=== PATIENT | male | born 1985 | race Caucasian/White ===

== ENCOUNTER 2024-07-27 22:27 | Inpatient (IN) | payer BC, SELFPAY ==
[2024-07-27 20:00] VITALS: BP 126/83; PULSE 70; RESP 20; TEMP 36.4; O2SAT 94
[2024-07-27 23:38] VITALS: BMI 22.3
--- NOTE | 2024-07-28 03:15 | PC.ADMIT ---
38yo M who arrived from [facility] at 2244 PM on 07/27/24. Pt is on 12b, arrives after failed suicide attempt by hanging. Per crisis report, pt attempted to hang himself with a chain from a tree branch but the branch broke. Pt requested separation from pt last week and pt has been residing at his mother's house since, which is where event occurred. Pt first statement to nursing staff is I don't give a shit what you say I am leaving here tomorrow at 3 PM. Pt provided information regarding 12b, pt aware of 72 hour hold, indicates this is work related. Pt says he recently relapsed on alcohol after 10 months of sobriety, states that relapse and last drink was just prior to suicide attempt and that I drank a shit ton. Per crisis report pt said that the suicide was planned but that he couldn't do it sober. Pt is not fully cooperative with admission, refusing to sign any documents. Pt does not want anyone to know he is here. Pt states I should be allowed to decide how I live or . Continues to be fixated on returning to work on Sunday morning. Pt appears anxious, making poor eye contact, shares some details but refuses to answer many questions. When asked about what led to this admission pt states, This is how men are, they don't want to talk about things, they just bottle it up until they explode. Pt has a plethora of upper body tattoos, 2 facial piercings and one ear piercing in place on arrival, bilateral nipple piercings and additional ear loop removed while in ED are currently in belongings. Pt is daily smoker/vaper, denies other substance use.
[2024-07-28 07:55] VITALS: BP 139/80; PULSE 70; RESP 16; TEMP 36.4; O2SAT 97
--- NOTE | 2024-07-28 08:36 | P.HPPS_ITS ---
HPI Date of Service: 07/28/24 Chief Complaint: Recurrent major depression, alcohol use disorder Sources of Information: patient interviewed, chart reviewed and crisis/core team assessment reviewed Additional Sources of Information: Mother, Eric. [phone]. Agrees pt should remain in hospital. Believes pt needs addiction rehab and that the couple need to divorce. Pt has a significant amount of debt and is worried about this. Family has not told pt's father of attempt as he is opinionated and can be difficult with pt. Pt often hides his emotions, has very low self esteem and will not be truthful about how he is feeling. Pt left rehab in [place] at the end of 2022 after only 2 weeks ([facility]). Eric believes he needs to return and return to . Eric's parents of alcohol related illnesses and both of her sisters are sober, so she is very concerned that pt is on a difficult path if he does not take this seriously. , Josette [phone]. 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 Connor and Josette recently separat ed after an attempted reconcilliation. Pt is angry and tells Josette he is going to get himself out of [facility] and do it right this time . Josette reports pt is highly manipulative and does not know how to accept when something has gone wrong and needs to be worked on. HPI Subjective Notes: [place] Warning and Section 12B Healthcare Proxy: No Guardianship: No Medical Problems Affecting Mental Status: No Narrative: 38 yo male, transferred from [facility] s/p 20 hour admit, medical clearance s/p attempting to hang himself with a chain from a tree at mother's home. The branch of the tree broke and pt fell. Pt reports 10 months of sobriety with 2 weeks of relapse of alcohol. Precipitants include asking for a divorce, pt moving from the family home to his mothers last week. Pt called to inform her he was going to suicide. Pt is very upset, apprehensive, angry, lookit, I need to be out of here by 3pm today. I don't want or need meds/treatment and I need to work at 430am tomorrow. [facility] assessed me when I was drunk. The ER MD told me you would just sign me out, so get to it Education provided on decision to keep pt due to attempt. Pt not accepting of this-states there is no way to call work to tell them ( will notify pt's division road supervisor). States he works with [employer] which is a classified program with the [employer] and [employer], has been there for eleven years and I cannot be excused . 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 Pt cooperative with history, declines all treatment, not needed . I was sober 10 months and broke for a few days(2 weeks), I just need to go back to work . States stress has been building due to wifes decision to divorce. Past Psychiatric History: IP: Denies OP: Had couples therapy, no current alliances IOP: 12 weeks/ 8 weeks Hx of attending [facility] suicidal gesture 08/2023-put a knife to his neck suicide attempt 06/2024-attempted hanging Medical Evaluation Reviewed: Yes [facility] Medical History (Updated 07/28/24 @ 14:19 by Hellen Cortes, BUILDING ENERGY RETROFIT TECHNICIAN) Mood disorder Alcohol use disorder Hypogonadism in male Narrative: CT negative, CTA negative, no stenosis, no LVO, chronic compression fx C6-7 Family History: Pt believes so Mother reports strong hx alcoholism Social History: Born and raised in [place] by both parents, 2 older brothers. Completed high school, parents father remarried. Felony property destruction [phone] x 2, current marriage in trouble since Aug 2023-pt was not honest and was involved in infidelity. Moved to moms house last week 4 children- estranged from 2 oldest middle child in college youngest child I am trying to mend our relationship Substance History: Relapse on alcohol ~ 2weeks ago Diagnostics Vital Signs (24Hr): Vital Signs - 24 hr 07/27/24 20:00 07/28/24 07:55 Temperature 97.6 F 97.5 F Pulse Rate 70 70 Respiratory Rate 20 16 Blood Pressure 126/83 139/80 Pulse Oximetry 94 97 Oxygen Delivery Method Room Air Room Air BMI result Body Mass Index 22.3 Meds/Allergies Meds Home Medications ?Medication ?Instructions ?Recorded ?Confirmed ?Type testosterone cypionate 2XW 07/28/24 History Allergies Allergies Allergy/AdvReac Type Severity Reaction Status Date / Time succinylcholine Allergy Severe pseudocholinesterase Verified 07/27/24 16:06 deficient Mental Status Exam Mental Status Exam Patient Appearance: Fatigued Patient Orientation: Person, Place, Time and Situation Level of Consciousness: Alert Patient Behavior: Restless, Resistive to Care, Distractible and Poor Eye Contact Mood Description: Depressed and Angry Affect Description: Flat Patient Cognition Impaired: No Ability to Follow Directions: Good Speech Pattern: Spontaneous Speech Memory Description: Episodic Impaired Hallucinations: None Delusions: Not Present Perceptual Disturbances: Depersonalization and Derealization Thought Process: Illogical, Rumination and Goal Oriented Thought Content: positive for Goal Oriented, positive for Perseveration and positive for Suicidal Ideation Depressive Symptoms: Increased Irritability, Thoughts of /Suicide and Low Self Esteem Abnormal Motor Activity Signs and Symptoms: Restlessness Judgement: Poor Assessment & Plan Assessment & Plan (1) Alcohol use disorder: Status: Acute Code(s): F10.90 - Alcohol use, unspecified, uncomplicated (2) Mood disorder: Status: Acute Code(s): F39 - Unspecified mood [affective] disorder Plan Mood Disorder, Alcohol Use Disorder. Plan: Admit, Section XII B, 15 minute checks Collateral contacts Lorazepam detox protocol, MVI, Folic Acid, Thiamine Olanzapine prn Encourage milieu Addiction consult Aftercare planning. Family encourages pt to return to longer term rehab. Patient educated on: therapeutic strategies Reason for continued inpatient stay Substantial Risk for: rapid decompensation Statement Statement: I have reviewed the history and physical and performed a pertinent examination on my patient. No changes have occurred unless specified. If the History and Physical was not performed prior to admission, the Hospitalist's service will be consulted for completing the admission physical. Time Spent With Patient Time: Total time managing care of this patient today ____ minutes.
[2024-07-28 08:41] LABS: Estimated Average Glucose 91 mg/dL; Hemoglobin A1c % 4.8 % (<6.0)
[2024-07-28 08:55] LABS: Cholesterol 170 mg/dL (<200); HDL Cholesterol 40 mg/dL (>40); LDL Cholesterol Calculated 101 mg/dL (<100); Magnesium 2.3 mg/dL (1.6-2.6); Triglycerides 145 mg/dL (<150)
[2024-07-28 09:09] LABS: Thyroid Stimulating Hormone 1.27 uIU/mL (0.32-4.0)
[2024-07-28 09:23] LABS: Folate 12.2 ng/mL (> or = 4.0); Vitamin B12 590 pg/mL (200-900)
--- NOTE | 2024-07-28 10:52 | HO.PM.IMCN ---
History of Present Illness Data of Consult Service Date: 07/28/24 Requesting physician: Hellen Cortes Primary Care Provider: Flavia Perez MD [facility] Reason for consult: medical h&p 38 year old male with history of hypogonadism on testosterone therapy admitted to adult psychiatry from [facility] ED with consult placed to hospitalist service for medical H&P. The patient apparently had relapsed on alcohol and had suicide attempt. He reportedly had a chain around his neck attached to a tree branch which broke likely secondary to weight and EMS was called. In the ED, head CT negative for acute abnormality. CTA negative for stenosis or LVO. There were chronic compression fracutres at C6-C7 but no acute osseous abnormality. Incidental finding of large lucency around the anterior para midlione maxilla surrounding roots of central and lateral incisors, question of radicular cyst or periapical abscess. Vitals stable, no fevers. Denies any physical complaints. No dental pain, no neck pain, dizziness, or headaches. While in the ED, hematology studies unremarkable. Renal function and lytes wnl. hepatic fx wnl. Ethyl alcohol level 176. EKG report reads st elevations in anterior leads on initial and repeat EKG. No trop taken. No chest pain, sob, nausea/vomiting, dizziness, syncope. Review of Systems Review of Systems: General: No fevers, malaise, unintentional weight loss HEENT: No blurred vision, diplopia. No sore throat, nasal congestion, rhinorrhea, sinus pain, ear pain, dental pain Cardiovascular: No chest pain, palpitations, or leg edema Respiratory: No shortness of breath, wheezing, cough GI: No abdominal pain, nausea, vomiting, diarrhea, constipation, melena, hematochezia : No dysuria, hematuria, increased urinary frequency, decreased urinary output MSK: No myalgia, back pain Neuro: No headaches, weakness, paresthesias Skin: No rashes or lesions PMFSH Medical History Hypogonadism in male Social History Household Members: Other Household Members Other:: pt refusing to answer states lives at home Patient Tobacco Use Status: Current everyday Tobacco user Tobacco use type: Cigarette and Smokeless Tobacco Smoked in Last 30 Days: Yes e-Cigarette/Vaping Use: Currently Using Frequency of e-Cigarette/Vaping Use: daily Patient Interested in Nicotine Replacement: Yes Use of substances other than those prescribed or required for medical reasons: Yes Substance Use Type: Marijuana Substance Use Frequency: Occasionally Currently Displaying Signs/Symptoms of Drug Intoxication Withdrawal: No Other Past Substance Use Problem:: hx alcohol detox program Any prior treatment program specific to substance use: No Advance Directives: No Advance Directives Information Provided: No Do you have thoughts of harming others: None Do you have a plan to hurt others: No Plan Recently lost weight without trying: Unsure Meds Allergies Allergy/AdvReac Type Severity Reaction Status Date / Time succinylcholine Allergy Severe pseudocholinesterase Verified 07/27/24 16:06 deficient Active Medications: Current Medications Acetaminophen (Acetaminophen 325 Mg Tablet) 650 mg PO Q6H PRN PRN Reason: Headache/Pain Mild Scale (1-3) Al Hydroxide/Mg Hydroxide (Magnesium Hydrox/Alum Hydrox 30 Ml Oral.Susp) 30 ml PO Q6H PRN PRN Reason: Heartburn/Nausea Folic Acid (Folic Acid 1 Mg Tablet) 1 mg PO DAILY [facility] Hydroxyzine HCl (Hydroxyzine Hcl 25 Mg Tablet) 25 mg PO Q6H PRN PRN Reason: Anxiety Lorazepam (Lorazepam 1 Mg Tablet) 1 mg PO Q2H PRN PRN Reason: CIWA 6-10 Lorazepam (Lorazepam 1 Mg Tablet) 2 mg PO Q2H PRN PRN Reason: CIWA 11+ Magnesium Hydroxide (Milk Of Magnesia 30 Ml Oral.Susp) 30 ml PO DAILY PRN PRN Reason: Constipation Multivitamins/Vitamin C (Multivitamin Tablet) 1 tab PO DAILY [facility] Nicotine (Nicotine 21 Mg Patch.Td24) 21 mg TRANSDERMA DAILY PRN PRN Reason: nicotine cravings Nicotine Polacrilex (Nicotine Polacrilex 2 Mg Gum) 4 mg BUCCAL Q2H PRN PRN Reason: Nicotine Cravings Olanzapine (Olanzapine 5 Mg Tablet) 5 mg PO Q4H PRN PRN Reason: agitation Thiamine HCl (Thiamine Hcl 100 Mg Tablet) 100 mg PO DAILY [facility] Trazodone HCl (Trazodone Hcl 50 Mg Tablet) 50 mg PO BEDTIME MRX1 PRN PRN Reason: Insomnia Home Medications ?Medication ?Instructions ?Recorded ?Confirmed ?Last Taken ?Type testosterone cypionate 2XW 07/28/24 07/25/24 History Physical Exam Vital Signs and Narrative: Vital Signs: Last Vital Signs Temp 97.5 F 07/28/24 07:55 Pulse 70 07/28/24 07:55 Resp 16 07/28/24 07:55 BP 139/80 07/28/24 07:55 Pulse Ox 97 07/28/24 07:55 O2 Del Method Room Air 07/28/24 07:55 BMI result Body Mass Index 22.3 Constitutional - Awake and Alert, No apparent distress Eyes - PERRLA, EOMI Cardiovascular - S1S2, RRR, No edema Respiratory - Normal lung expansion, Normal respiratory effort, No respiratory distress, CTA bilaterally Gastrointestinal - NT / ND; +BS; No rebound or guarding Extremities - no calf tenderness bilaterally, no swelling Musculoskeletal - Normal inspection, normal ROM Skin - Warm/Dry Neurological - Alert & oriented x3, CN II-XII in tact, 5/5 strength BUE and BLE Psychological - Appropriate affect Results Labs Labs: Laboratory Results - last 24 hr 07/28/24 07:50 Estimat Average Glucose 91 Hemoglobin A1c % 4.8 Magnesium 2.3 Triglycerides 145 Cholesterol 170 LDL Cholesterol, Calc 101 H HDL Cholesterol 40 L Vitamin B12 590 Folate 12.2 TSH 1.27 Free T4 0.90 Assessment and Plan (1) Routine medical exam: Status: Acute Plan 38 year old male with history of hypogonadism on testosterone therapy admitted to adult psychiatry from [facility] ED with consult placed to hospitalist service for medical H&P. #Mood disorder/suicide attempt by hanging -CT head negative for acute abnormality, CTA head/neck shows chronic compression fx C6-C7 but no acute osseous abn -Plan per psychiatry #Abnormal EKG -report reads ST elevations in anterior leads. No CP -Repeat EKG now. #Maxillary lucency on CTA -doubt periapical abscess in absence of fevers, leukocytosis, or pain -likely cystic. Outpt follow up with dental/oral surgeon #Hypogonadism -family can bring in testosterone from home or can resume on discharge Thank you for allowing me to participate in this consult. Signing off at this time. Please do not hesitate to call for further questions or for any acute medical issues
[2024-07-28 19:47] VITALS: BP 131/75; PULSE 71; RESP 14; TEMP 36.3; O2SAT 96
[2024-07-29 08:00] VITALS: BP 118/79; PULSE 69; RESP 18; TEMP 37.1; O2SAT 95
[2024-07-29] MEDS: Thiamine HCL 100 MG TABLET PO (08:55)
[2024-07-29] MEDS: Folic Acid 1 MG TABLET PO (08:55)
[2024-07-29] MEDS: Multivitamin TABLET 1 TAB PO (08:55)
--- NOTE | 2024-07-29 10:15 | HO.PSYCHPN ---
Subjective Subjective Date of Service: 07/29/24 Reason For Visit: Recurrent major depression, alcohol use disorder Interim History: Met with patient; discussed with team; reviewed chart Patient explained discrepancies between thinks he said an emergency room with what he is thinking and feeling now. He says that he did say several things he did not mean when in the ED because he was still intoxicated. Patient says he did not really have a plan to end his life but that suicidal thoughts would come and go in and out of his mind at times given relational strife; he says that once intoxicated however those thoughts lingered instead of resolved; he agrees that perhaps he said he was planning it but unable to do it while was sober but explains now that he has 4 kids from a previous marriage, referencing his daughter whom he recently dropped off to college and 1 of his sons is starting [employer]o high school, all who lost their mother to a drug overdose; he says that even though he may have said such things while intoxicated, he did not really mean them and would not want to put his children through anything like that again. He says otherwise he has never been suicidal in his life He does not remember telling his that once he gets out of the hospital he will do it right... But Again saying this was due to being intoxicated at the time and does not think that way now. He denies any SI at all and wants to discharge so he can get back to work saying the bills will not pay for themselves. He says this experience once again prove to himself that he can not handle drinking at all. Patient reported that he was sober for 10 months and relapsed just that day; in the ED he did report he had been drinking for about 2 weeks prior Patient said that situationally he has been depressed this past month but overall not that much denies any significant depressive episodes throughout his lifetime. He says he will feel depressed about his life situation, that he works 2 jobs, the way things have worked out for him but denies that this is significant. Denies trauma history. Patient says he has never been on medication but is willing to try it and after hearing risks/side effects agreed to start Lexapro. He also agrees that he would probably benefit from therapy which he says will have more time to do now that he is going to be able to quit 1 of his jobs. Mental Status Exam Mental Status Exam Narrative: Pt is alert and oriented; behavior is cooperative, friendly and calm; patient is not in distress; dressed in casual attire with unkempt hair but adequate hygiene; mood is described as good and affect congruent; eye contact appropriate; Speech is normal rate, volume and prosody and not pressured; no psychomotor agitation/retardation present; thought process is organized and goal directed; Thought content is on tx; otherwise pertinent to relevant topics and without any delusional content, paranoid ideations or grandiosity; denies any SI/HI. There is no evidence of perceptual disturbance. Patients insight and judgment appear intact. Diagnostics Vital Signs (24Hr): Vital Signs - 24 hr 07/28/24 19:47 Temperature 97.3 F Pulse Rate 71 Respiratory Rate 14 Blood Pressure 131/75 Pulse Oximetry 96 Oxygen Delivery Method Room Air BMI result Body Mass Index 22.3 Labs Labs: Laboratory Results - last 48 hr 07/28/24 07:50 Estimat Average Glucose 91 Hemoglobin A1c % 4.8 Magnesium 2.3 Triglycerides 145 Cholesterol 170 LDL Cholesterol, Calc 101 H HDL Cholesterol 40 L Vitamin B12 590 Folate 12.2 TSH 1.27 Free T4 0.90 Medications Medications Current Medications Acetaminophen (Acetaminophen 325 Mg Tablet) 650 mg PO Q6H PRN PRN Reason: Headache/Pain Mild Scale (1-3) Al Hydroxide/Mg Hydroxide (Magnesium Hydrox/Alum Hydrox 30 Ml Oral.Susp) 30 ml PO Q6H PRN PRN Reason: Heartburn/Nausea Folic Acid (Folic Acid 1 Mg Tablet) 1 mg PO DAILY [facility] Last Admin: 07/29/24 08:55 Dose: 1 mg Hydroxyzine HCl (Hydroxyzine Hcl 25 Mg Tablet) 25 mg PO Q6H PRN PRN Reason: Anxiety Lorazepam (Lorazepam 1 Mg Tablet) 1 mg PO Q2H PRN PRN Reason: CIWA 6-10 Lorazepam (Lorazepam 1 Mg Tablet) 2 mg PO Q2H PRN PRN Reason: CIWA 11+ Magnesium Hydroxide (Milk Of Magnesia 30 Ml Oral.Susp) 30 ml PO DAILY PRN PRN Reason: Constipation Multivitamins/Vitamin C (Multivitamin Tablet) 1 tab PO DAILY [facility] Last Admin: 07/29/24 08:55 Dose: 1 tab Nicotine (Nicotine 21 Mg Patch.Td24) 21 mg TRANSDERMA DAILY PRN PRN Reason: nicotine cravings Nicotine Polacrilex (Nicotine Polacrilex 2 Mg Gum) 4 mg BUCCAL Q2H PRN PRN Reason: Nicotine Cravings Olanzapine (Olanzapine 5 Mg Tablet) 5 mg PO Q4H PRN PRN Reason: agitation Thiamine HCl (Thiamine Hcl 100 Mg Tablet) 100 mg PO DAILY [facility] Last Admin: 07/29/24 08:55 Dose: 100 mg Trazodone HCl (Trazodone Hcl 50 Mg Tablet) 50 mg PO BEDTIME MRX1 PRN PRN Reason: Insomnia Allergies Allergies Allergy/AdvReac Type Severity Reaction Status Date / Time succinylcholine Allergy Severe pseudocholinesterase Verified 07/27/24 16:06 deficient Assessment & Plan Assessment & Plan (1) Alcohol use disorder: Status: Acute Code(s): F10.90 - Alcohol use, unspecified, uncomplicated (2) Mood disorder: Status: Acute Code(s): F39 - Unspecified mood [affective] disorder Plan Mood Disorder, Alcohol Use Disorder. Hospital course: 07/29 Patient explained discrepancies between thinks he said an emergency room with what he is thinking and feeling now. He says that he did say several things he did not mean when in the ED because he was still intoxicated. Patient says he did not really have a plan to end his life but that suicidal thoughts would come and go in and out of his mind at times given relational strife; he says that once intoxicated however those thoughts lingered instead of resolved; he agrees that perhaps he said he was planning it but unable to do it while was sober but explains now that he has 4 kids from a previous marriage, referencing his daughter whom he recently dropped off to college and 1 of his sons is starting nilo high school, all who lost their mother to a drug overdose; he says that even though he may have said such things while intoxicated, he did not really mean them and would not want to put his children through anything like that again. He says otherwise he has never been suicidal in his life He does not remember telling his that once he gets out of the hospital he will do it right... But Again saying this was due to being intoxicated at the time and does not think that way now. He denies any SI at all and wants to discharge so he can get back to work saying the bills will not pay for themselves. He says this experience once again prove to himself that he can not handle drinking at all. Patient reported that he was sober for 10 months and relapsed just that day; in the ED he did report he had been drinking for about 2 weeks prior; denies any withdrawal symptoms Patient said that situationally he has been depressed this past month but overall not that much denies any significant depressive episodes throughout his lifetime. He says he will feel depressed about his life situation, that he works 2 jobs, the way things have worked out for him but denies that this is significant. Denies trauma history. Patient says he has never been on medication but is willing to try it and after hearing risks/side effects agreed to start Lexapro. Discussed the need to better figure out why he became suicidal, why all sudden became so hopeless; patient agrees and says he would benefit from therapy which he says will have more time to do now that he is going to be able to quit 1 of his jobs. Plan: Section XII B, Q 15 minute checks Start Lexapro 10 mg Collateral contacts Lorazepam detox protocol, MVI, Folic Acid, Thiamine Olanzapine prn Encourage milieu Addiction consult Aftercare planning. Family encourages pt to return to longer term rehab. Patient educated on: diagnosis, medication risk/benefits, substance abuse and therapeutic strategies Informed Consent: understands Reason for continued inpatient stay Substantial Risk for: rapid decompensation Time Spent With Patient Time: Total time managing care of this patient today ____ minutes.
--- NOTE | 2024-07-29 13:38 | MHC.RECOVRN ---
AUDIT-C Brief Intervention Pt had positive screen for unhealthy alcohol use on admission. Attempted to meet with pt to discuss alcohol use and offer resources, pt declined.
[2024-07-29] MEDS: Escitalopram Oxalate 5 MG TABLET PO (13:55)
[2024-07-29] MEDS: Nicotine Polacrilex Lozenge 4 MG LOZENGE BUCCAL ×2 (14:12→21:08)
[2024-07-29 20:00] VITALS: BP 133/78; PULSE 67; RESP 18; TEMP 36.4; O2SAT 93
[2024-07-29] MEDS: traZODone HCL 50 MG TABLET PO (21:08)
[2024-07-30 08:00] VITALS: BP 118/75; PULSE 66; RESP 18; TEMP 36.7; O2SAT 95
[2024-07-30] MEDS: Multivitamin TABLET 1 TAB PO (09:09)
[2024-07-30] MEDS: Thiamine HCL 100 MG TABLET PO (09:09)
[2024-07-30] MEDS: Folic Acid 1 MG TABLET PO (09:09)
[2024-07-30] MEDS: Escitalopram Oxalate 10 MG TABLET PO (09:09)
[2024-07-30] MEDS: Nicotine Polacrilex Lozenge 4 MG LOZENGE BUCCAL ×3 (11:27→21:06)
--- NOTE | 2024-07-30 17:39 | P.PNPSI_ITS ---
Subjective Subjective Date of Service: 07/30/24 Reason For Visit: Recurrent major depression, alcohol use disorder Interim History: Met with patient; discussed with team Patient reports that he is feeling better. No problems with Lexapro and agrees to continue. Also reports trazodone has been helpful at wants to continue with that as well. Patient plans to stay at his mother's who visited on the unit. Patient said it was fine to talk with his mother Patient's mother does not think he is in imminent risk for harm to self and denies any other history of SI other than many years ago; says he called his to tell her he was planning to hang himself which she thinks was done in part to solicit a response from her, perhaps to get her to reconcile further. She corroborates that he has been sober for the past 10 months; she agrees however that it is possible he has been drinking more the past week than he initially said. She said he is welcome to come back and stay at her house. Mental Status Exam Mental Status Exam Narrative: Pt is alert and oriented; behavior is cooperative, friendly and calm; patient is not in distress; dressed in casual attire and adequately groomed; tattoos legs arms neck; mood is described as good and affect congruent; eye contact appropriate; Speech is normal rate, volume and prosody and not pressured; no psychomotor agitation/retardation present; thought process is organized and goal directed; Thought content is on tx and discharge; otherwise pertinent to relevant topics and without any delusional content, paranoid ideations or grandiosity; denies any SI/HI. There is no evidence of perceptual disturbance. Patients insight and judgment somewhat impaired but at baseline and adequate Diagnostics Vital Signs (24Hr): Vital Signs - 24 hr 07/29/24 20:00 07/30/24 08:00 Temperature 97.5 F 98.1 F Pulse Rate 67 66 Respiratory Rate 18 18 Blood Pressure 133/78 118/75 Pulse Oximetry 93 95 Oxygen Delivery Method Room Air Room Air BMI result Body Mass Index 22.3 Medications Medications Current Medications Acetaminophen (Acetaminophen 325 Mg Tablet) 650 mg PO Q6H PRN PRN Reason: Headache/Pain Mild Scale (1-3) Al Hydroxide/Mg Hydroxide (Magnesium Hydrox/Alum Hydrox 30 Ml Oral.Susp) 30 ml PO Q6H PRN PRN Reason: Heartburn/Nausea Escitalopram Oxalate (Escitalopram Oxalate 10 Mg Tablet) 10 mg PO DAILY [facility] Last Admin: 07/30/24 09:09 Dose: 10 mg Folic Acid (Folic Acid 1 Mg Tablet) 1 mg PO DAILY [facility] Last Admin: 07/30/24 09:09 Dose: 1 mg Hydroxyzine HCl (Hydroxyzine Hcl 25 Mg Tablet) 25 mg PO Q6H PRN PRN Reason: Anxiety Magnesium Hydroxide (Milk Of Magnesia 30 Ml Oral.Susp) 30 ml PO DAILY PRN PRN Reason: Constipation Multivitamins/Vitamin C (Multivitamin Tablet) 1 tab PO DAILY [facility] Last Admin: 07/30/24 09:09 Dose: 1 tab Nicotine (Nicotine 21 Mg Patch.Td24) 21 mg TRANSDERMA DAILY PRN PRN Reason: nicotine cravings Nicotine Polacrilex (Nicotine Polacrilex Lozenge 4 Mg Lozenge) 4 mg BUCCAL Q2H PRN PRN Reason: Nicotine Cravings Last Admin: 07/30/24 15:10 Dose: 4 mg Olanzapine (Olanzapine 5 Mg Tablet) 5 mg PO Q4H PRN PRN Reason: agitation Thiamine HCl (Thiamine Hcl 100 Mg Tablet) 100 mg PO DAILY [facility] Last Admin: 07/30/24 09:09 Dose: 100 mg Trazodone HCl (Trazodone Hcl 50 Mg Tablet) 50 mg PO BEDTIME MRX1 PRN PRN Reason: Insomnia Last Admin: 07/29/24 21:08 Dose: 50 mg Allergies Allergies Allergy/AdvReac Type Severity Reaction Status Date / Time succinylcholine Allergy Severe pseudocholinesterase Verified 07/27/24 16:06 deficient Assessment & Plan Assessment & Plan (1) Alcohol use disorder: Status: Acute Code(s): F10.90 - Alcohol use, unspecified, uncomplicated (2) Mood disorder: Status: Acute Code(s): F39 - Unspecified mood [affective] disorder Plan Mood Disorder, Alcohol Use Disorder. Hospital course: 07/29 Patient explained discrepancies between thinks he said an emergency room with what he is thinking and feeling now. He says that he did say several things he did not mean when in the ED because he was still intoxicated. Patient says he did not really have a plan to end his life but that suicidal thoughts would come and go in and out of his mind at times given relational strife; he says that once intoxicated however those thoughts lingered instead of resolved; he agrees that perhaps he said he was planning it but unable to do it while was sober but explains now that he has 4 kids from a previous marriage, referencing his daughter whom he recently dropped off to college and 1 of his sons is starting [employer] school, all who lost their mother to a drug overdose; he says that even though he may have said such things while intoxicated, he did not really mean them and would not want to put his children through anything like that again. He says otherwise he has never been suicidal in his life He does not remember telling his that once he gets out of the hospital he will do it right... But Again saying this was due to being intoxicated at the time and does not think that way now. He denies any SI at all and wants to discharge so he can get back to work saying the bills will not pay for themselves. He says this experience once again prove to himself that he can not handle drinking at all. Patient reported that he was sober for 10 months and relapsed just that day; in the ED he did report he had been drinking for about 2 weeks prior; denies any withdrawal symptoms Patient said that situationally he has been depressed this past month but overall not that much denies any significant depressive episodes throughout his lifetime. He says he will feel depressed about his life situation, that he works 2 jobs, the way things have worked out for him but denies that this is significant. Denies trauma history. Patient says he has never been on medication but is willing to try it and after hearing risks/side effects agreed to start Lexapro. Discussed the need to better figure out why he became suicidal, why all sudden became so hopeless; patient agrees and says he would benefit from therapy which he says will have more time to do now that he is going to be able to quit 1 of his jobs. Patient reports he is feeling good and open to continue treatment post discharge. Plans to remain sober and is grateful to be able to stay at his mom's. Denies any SI at all and is future oriented, wanting to get back to work. He is eating and sleeping well and tolerating Lexapro which he says he will continue; he has also remained in good behavioral and impulse control throughout his time in the unit. Patient 12 B is coming due and patient feels back to his regular self, wanting discharge. Distribution District Supervisor agrees there is no utility to keeping patient on the unit as he does not want any further treatment and is not in imminent risk for harm to self or others. He is back to baseline and more open than he used to be to outpatient treatment. At this time further progress requires patient being consistently engaged in outpatient therapy and sobriety which is something he says he is open to pursuing. Patient's request for discharge honored. Plan: Section XII B, Q 15 minute checks Start Lexapro 10 mg Collateral contacts Lorazepam detox protocol, MVI, Folic Acid, Thiamine Olanzapine prn Encourage milieu Addiction consult Aftercare planning. Family encourages pt to return to longer term rehab. Patient educated on: diagnosis, medication risk/benefits, substance abuse and therapeutic strategies Informed Consent: understands Reason for continued inpatient stay Substantial Risk for: stable for discharge Time Spent With Patient Time: Total time managing care of this patient today ____ minutes.
[2024-07-30 19:44] VITALS: BP 143/83; PULSE 73; RESP 15; TEMP 36.6; O2SAT 98
[2024-07-30] MEDS: traZODone HCL 50 MG TABLET PO (21:06)
[2024-07-31] MEDS: Nicotine Polacrilex Lozenge 4 MG LOZENGE BUCCAL ×2 (07:16→12:20)
[2024-07-31 08:00] VITALS: BP 149/90; PULSE 75; RESP 16; TEMP 36.9; O2SAT 97
[2024-07-31] MEDS: Thiamine HCL 100 MG TABLET PO (08:52)
[2024-07-31] MEDS: Escitalopram Oxalate 10 MG TABLET PO (08:52)
[2024-07-31] MEDS: Folic Acid 1 MG TABLET PO (08:52)
[2024-07-31] MEDS: Multivitamin TABLET 1 TAB PO (08:52)
[2024-07-31 09:48] VITALS: BMI 21.7
--- NOTE | 2024-07-31 12:21 | P.DS_ITS ---
DS: Providers Provider Date of Service: 07/31/24 Date of admission: 07/27/24 22:27 Date of discharge: 07/31/24 Primary care physician: Flavia Perez MD Attending physician on admission: Hellen Cortes Consults: 07/27/24 23:02 Consult to Hospitalist Routine Comment: Consulting Provider: Hospitalist Reason For Exam: Transfer pt 07/28/24 14:23 Addiction Medicine Routine Consulting Provider: Addiction Covering Reason for consultation: Recent relapse after 10 months of sobriety Has provider been notified: No Attending physician on discharge: Hamilton Pritchard DS: Diagnosis Discharge Diagnosis (1) Alcohol use disorder: Status: Acute (2) Mood disorder: Status: Acute DS: Medications Discharge Medications Home Medications: Home Medications ?Medication ?Instructions ?Recorded ?Confirmed testosterone cypionate 2XW 07/28/24 Previous Rx's ?Medication ?Instructions ?Recorded escitalopram oxalate 10 mg tablet 10 mg PO DAILY 30 days #30 tabs 07/31/24 trazodone 50 mg tablet 50 mg PO BEDTIME PRN Insomnia 30 07/31/24 days #30 tabs Mental Status Exam Mental Status Exam Narrative: Pt is alert and oriented; behavior is cooperative, friendly and calm; patient is not in distress; dressed in casual attire and adequately groomed; tattoos legs arms neck; mood is described as good and affect congruent; eye contact appropriate; Speech is normal rate, volume and prosody and not pressured; no psychomotor agitation/retardation present; thought process is organized and goal directed; Thought content is on tx and discharge; otherwise pertinent to relevant topics and without any delusional content, paranoid ideations or grandiosity; denies any SI/HI. There is no evidence of perceptual disturbance. Patients insight and judgment much improved, fair and adequate. Data Data Completed and Pending Completed studies during hospitalization [Text1]: 07/28/24 07:50 Estimat Average Glucose 91 Hemoglobin A1c % 4.8 Magnesium 2.3 Triglycerides 145 Cholesterol 170 LDL Cholesterol, Calc 101 H HDL Cholesterol 40 L Vitamin B12 590 Folate 12.2 TSH 1.27 Free T4 0.90 DS: Summary Hospital Course Hospital Course: Hospital course: 07/29 Patient explained discrepancies between thinks he said an emergency room with what he is thinking and feeling now. He says that he did say several things he did not mean when in the ED because he was still intoxicated. Patient says he did not really have a plan to end his life but that suicidal thoughts would come and go in and out of his mind at times given relational strife; he says that once intoxicated however those thoughts lingered instead of resolved; he agrees that perhaps he said he was planning it but unable to do it while was sober but explains now that he has 4 kids from a previous marriage, referencing his daughter whom he recently dropped off to college and 1 of his sons is start ing [employer] high school, all who lost their mother to a drug overdose; he says that even though he may have said such things while intoxicated, he did not really mean them and would not want to put his children through anything like that again. He says otherwise he has never been suicidal in his life He does not remember telling his that once he gets out of the hospital he will do it right... But Again saying this was due to being intoxicated at the time and does not think that way now. He denies any SI at all and wants to discharge so he can get back to work saying the bills will not pay for themselves. He says this experience once again prove to himself that he can not handle drinking at all. Patient reported that he was sober for 10 months and relapsed just that day; in the ED he did report he had been drinking for about 2 weeks prior; denies any withdrawal symptoms Patient said that situationally he has been depressed this past month but overall not that much denies any significant depressive episodes throughout his lifetime. He says he will feel depressed about his life situation, that he works 2 jobs, the way things have worked out for him but denies that this is significant. Denies trauma history. Patient says he has never been on medication but is willing to try it and after hearing risks/side effects agreed to start Lexapro. Discussed the need to better figure out why he became suicidal, why all sudden became so hopeless; patient agrees and says he would benefit from therapy which he says will have more time to do now that he is going to be able to quit 1 of his jobs. Patient's mom corroborated that to her knowledge he had no prior history of self-harm except for 1 time a number of years ago; she is not sure that he actually did hang himself, just that he called his girlfriend to tell her he was going to and then later reported to the police that he in fact did; it was noted that he had no [place] on his neck at all. On day of discharge, Patient reports he can tell that he is in a better mood and is feeling good and open to continue treatment post discharge. He was much more open and discussed how initially was very hard for him to talk about his thoughts and feelings, having spent his life time not doing so. He says when he 1st got here he was just resigned to keep his head down, say what he had to until he could get discharge; however he is grateful that he is now way more open... Patient reports that yesterday evening he talked with his friends from and plans to meet with them tonight; he laments having not been open with them over the past couple weeks and feels he could have avoided so much trouble had he reached out for help. Plans to remain sober and is grateful to be able to stay at his mom's. Denies any SI at all and is future oriented, wanting to get back to work. He is eating and sleeping well and tolerating Lexapro which he says he will continue; he has also remained in good behavioral and impulse control throughout his time in the unit. Patient 12 B is coming due and patient feels back to his regular self, wanting discharge. Fire Department Marine Engineer agrees there is no utility to keeping patient on the unit as he does not want any further treatment and is not in imminent risk for harm to self or others. He is back to baseline and more open than he used to be to outpatient treatment. At this time further progress requires patient being consistently engaged in outpatient therapy and sobriety which is something he says he is open to pursuing. Patient's request for discharge honored. On day of discharge, a warrant for patient regarding a section 35 was initiated; his had petitioned the court days ago; she reconsidered and yesterday called the court house to to retract, however the yarn texture machine operator would not do so. Patient understood the ramifications of this petition and was resigned to go and discuss it with the yarn texture machine operator. Patient gave permission for team to call court house and let them know he is being discharged from the unit and to pick him up there. Time spent discussing smoking cessation with patient: 3 to 10 minutes Status at Discharge Functional status at discharge: independent ambulation Overall status at discharge: patient is back to baseline Time Spent with Patient Time attestation: Total time managing care of this patient today _45___ minutes. Time spent: Greater than 30 minutes Discharge Plan Discharge Anticipated Discharge Date/Time: 07/31/24 13:00 Patient Disposition: Home, Self-Care Discharge Diagnosis: MDD, recurrent, moderate-severe, in partial remission Referrals: [facility] [Other] - 1 Week (Walk-In M-F 10-12pm) [facility] [Other] - 1 Week (Walk-in hours for psychiatry and therapy intake. M-F 8-8 Sat 9-5) [facility] [Other] - 1 Week (Follow up here to get re-established with a counselor. ) Flavia Perez MD [Primary Care Provider] - 2 Weeks (Pt to schedule follow up appointment with provider) Discharge Medications: New escitalopram oxalate 10 mg Tablet 10 mg PO DAILY 30 Days Qty: 30 1RF trazodone 50 mg Tablet 50 mg PO BEDTIME PRN (Reason: Insomnia) 30 Days Qty: 30 1RF Continued testosterone cypionate 2XW Discharge Orders: Discharge Order (Routine); Ordered 07/31/24 Ordered By: Hamilton Pritchard Diet: Regular diet Activity on Discharge: As tolerated Stand Alone Forms: Patient Portal Discharge page, Community Support Print Language: Lithuanian Care Plan Goals: Maintain mood and safe behaviors Take medications as prescribed Continue to pursue sobriety Practice coping skills Continue with outpatient providers and reach out to them as needed Health Concerns: Mood stability and behaviors Sobriety Plan of Treatment: Follow up with your PCP, psychiatric provider and other outpatient providers regarding above concerns Take medications as prescribed Assessment: Risk assessment at time of discharge:? Patient was interviewed prior to discharge and found to be fully oriented and without any SI or HI. Patient has improved insight and judgment and wants to continue treatment. Patient is not in imminent risk of harm to self or others and has a safety plan that includes presenting to the closest ER or calling 911 if feeling unsafe.? Patient has been observed closely by nursing and unit staff throughout admission; patient has not engaged in any behaviors that suggest dangerousness to self or others and has demonstrated appropriate behaviors and impulse control Discharge Date/Time: 07/31/24 14:00
== END 2024-07-31 14:00 | disposition home or self-care (01) | DRG 753 ==
PROVIDERS: Clinical Nurse Specialist Psychiatric/Mental Health, Adult; Admitting Provider Psychiatry & Neurology Psychiatry; PCP Internal Medicine; Visit Provider Psychiatry & Neurology Psychiatry
DX: F39 Unspecified mood [affective] disorder (principal); E29.1 Testicular hypofunction; F10.90 Alcohol use, unspecified, uncomplicated; F17.210 Nicotine dependence, cigarettes, uncomplicated; Z71.6 Tobacco abuse counseling; Z79.890 Hormone replacement therapy
CPT/HCPCS: 36415; 80061; 82607; 82746; 83036; 83735; 84439; 84443

== ENCOUNTER → 2024-07-27 22:27 | Outpatient (BNV) | payer BC, SELFPAY | PROVIDERS: Admitting Provider Psychiatry & Neurology Psychiatry; PCP Internal Medicine; Visit Provider Physician Assistant | DX: Z02.2 Encounter for examination for admission to residential institution (principal) | CPT/HCPCS: 99429 ==

== ENCOUNTER → 2024-07-27 22:27 | Outpatient (BNV) | payer BC, SELFPAY | PROVIDERS: Admitting Provider Psychiatry & Neurology Psychiatry; PCP Internal Medicine; Visit Provider Clinical Nurse Specialist Psychiatric/Mental Health, Adult | DX: F39 Unspecified mood [affective] disorder (principal); F10.90 Alcohol use, unspecified, uncomplicated | CPT/HCPCS: 90792; 99232; 99239 ==